=== PATIENT | male | born 1950 | race Caucasian/White ===

== ENCOUNTER 2019-02-25 08:13 | Day surgery (SDC) | payer MEDICARE, BC | END 2019-02-25 13:50 | disposition home or self-care (01) | LOC: D.OPS 08:13 | DX: K43.2 Incisional hernia without obstruction or gangrene (principal); E78.5 Hyperlipidemia, unspecified; N40.0 Benign prostatic hyperplasia without lower urinary tract symptoms; Z01.812 Encounter for preprocedural laboratory examination ==

== ENCOUNTER → 2019-05-10 12:38 | Outpatient (CLI) | payer MEDICARE, BC ==
[2019-02-25 09:33] VITALS: BMI 27.9
[~2019-05-10 12:38] MED LIST: AMBIEN10 MG PO; BACLOFEN10 MG PO; FLOMAX0.4 MG PO; HYDROCODON-ACE1 EA10 PO; LIPITOR20 MG PO; NEURONTIN 300300 MG PO
== END | disposition home or self-care (01) ==
LOC: D.MRI 12:38
PROVIDERS: ATTEND Family Medicine
DX: M54.16 Radiculopathy, lumbar region (principal)

== ENCOUNTER → 2019-10-29 10:23 | Outpatient (CLI) | payer MEDICARE, BC ==
[2019-02-25 09:33] VITALS: BMI 27.9
== END | disposition home or self-care (01) ==
LOC: D.CT 10:23
PROVIDERS: ATTEND Surgery
DX: R10.31 Right lower quadrant pain (principal)